=== PATIENT | female | born 1985 | race African-American/Black ===

== ENCOUNTER 2017-05-02 11:11 | Inpatient (IN) ==
[2017-05-02] MEDS ORDERED: KETOROLAC 60 MG/2 ML VIAL IM STA (12:19)
[2017-05-02 12:29] LABS: Apearance,Urine CLOUDY (Clear); Bacteria,Urine Many /HPF (Few); Bilirubin,Urine Negative (Negative); Blood, Urine Negative (Negative); Glucose,Urine (UA) Negative (Negative); Ketones,Urine 20 mg/dL (Negative); Mucus,Urine Moderate /LPF (Occasional); Nitrite,Urine Negative (Negative); Protein,Urine 30 MG/DL; RBC,Urine 2 /HPF (0-4); Squamous Epithelial Cell,Urine Moderate /HPF (0-10); Urine Color Amber (Yellow); Urine Specific Gravity 1.024 (1.001-1.035); WBC,Urine 2 /HPF (0-6)
[2017-05-02 12:40] LABS: Basophils % 0.3 % (0.0-0.8); Eosinophils # 0.2 10*3/uL (0.0-0.87); Eosinophils % 2.3 % (0.00-10.9); Hemoglobin 15.9 GM/DL (12.0-16.0); Immature Granulocytes % 0.4 %; Immature Granulocytes Absolute 0.03 #; Lymphocytes # 0.8 10*3/uL (1.4-4.0); Lymphocytes % 11.3 % (21.3-54.2); Mean Corpuscular HGB Conc 36.1 GM/DL (32-36); Mean Corpuscular Hemoglobin 31 PG (27-34); Mean Corpuscular Volume 85.1 FL (87-102); Mean Platelet Volume 9.3 FL (9.6-12.0); Monocytes # 0.5 10*3/uL (0.11-0.8); Neutrophils # 5.7 10*3/uL (1.4-7.4); Neutrophils % 78.7 % (38.7-73.9); Platelet Count 147 T/CUMM (130-400); Red Blood Count 5.17 MC/CUMM (3.8-5.5); White Blood Count 7.3 T/CUMM (4-12)
--- NOTE | 2017-05-02 12:56 | Emergency Department Note ---
Arrival - Arrival Chief Complaint: Non-Specific Stated Complaint: fever,lower back pain,upper stomach pain ED Nursing Triage Note: reports low back pain and some stomach pain with h/a for three days. denies uti s/s. denies n/v/d. reports has been in bed for three days. Mode of Arrival: Ambulatory Limitations: No Limitations Source: Patient, Old Records Reviewed, RN Notes Reviewed Time Seen by Provider: 05/02/17 11:50 - History of Present Illness HPI Narrative: - History of Present Illness 32-year-old black presents to ED with CC of: abdominal pain, low back pain, and headache x 3 days Fever: yes, temp max 101.0, temp 100.4 in triage Keeping fluids down: yes Normal urine output: yes Patient has a history of kidney stones, she feels like this may be another kidney stone PMHx: HTN, DM, CAD, history of hepatitis A, history of renal calculi, except he kidney disease, dialysis, and other comorbidites as listed in chart Date of Last Menstrual Period: hyst Allergies/Adverse Reactions: Allergies Allergy/AdvReac Type Severity Reaction Status Date / Time Sulfa (Sulfonamide AdvReac ANAPHYLAXIS Verified 01/30/17 18:28 Antibiotics) sulfamethoxazole AdvReac ANAPHYLAXIS Verified 01/30/17 18:28 [From Bactrim] trimethoprim [From Bactrim] AdvReac ANAPHYLAXIS Verified 01/30/17 18:28 Home Medications: Home Medications Medication Instructions Recorded Confirmed Type Divalproex [Depakote] 250 mg PO DAILY 03/17/17 05/02/17 History Naproxen [Naprosyn Tab] 500 mg PO Q12H PRN #15 tablet 03/17/17 05/02/17 Rx Topiramate [Topiramate] 100 mg PO DAILY 03/17/17 05/02/17 History Linaclotide [Linzess] 290 mg PO DAILY 05/02/17 05/02/17 History Ondansetron Tab [Zofran Tab] 8 mg PO TID PRN 05/02/17 05/02/17 History Tramadol HCl [Tramadol Tab] 50 mg PO BEDTIME PRN 05/02/17 05/02/17 History Hydrocodone/Acetaminophen 1 tablet PO BID PRN 05/03/17 05/03/17 History [Hydrocodon-Acetaminophen 5-325] Review of System - Review of System 12 point system: reviewed and no additional remarkable complaints except as stated - Review of System Gastrointestinal: Present: abdominal pain Musculoskeletal: Present: back pain Neurological: Present: headache Medical,Surgical,& Family Hx - Medical History Neurology: History of: Seizures Gastrointestinal: History of: Liver Problems - Surgical History Abdominal Surgeries: Surgical HX of: Cholecystectomy Reproductive Surgeries: Surgical HX of;: Hysterectomy - Social History Smoking Status: Never smoker Exam Physical Examination: - General General appearance: alert, in no apparent distress - HEENT Present: atraumatic, normocephalic, normal inspection, PERRL, EOMI, mucous membranes moist - Neck Neck exam: Present: normal inspection, full ROM - Respiratory Respiratory exam: Present: normal lung sounds bilaterally - Cardiovascular Cardiovascular exam: Present: regular rate, normal rhythm, normal heart sounds - Abdominal Exam Abdominal exam: Present: soft, tenderness: epigastric area, mild to moderate, normal bowel sounds. Absent: distention, guarding, trauma, - Extremities Exam Extremities exam: Present: normal inspection, full ROM. Absent: pedal edema, joint swelling, calf tenderness - Back Exam Back exam: Present: normal inspection, tenderness to palpation across lower back , denies CVA tenderness - Neurological Exam Neurological exam: Present: alert, oriented X3, no neuorosensory deficits - Psychiatric Psychiatric exam: Present: normal affect, normal mood - Skin Skin exam: Present: warm, dry, intact Vital Signs: Vital Signs Temperature 97.3 F L 05/04/17 20:00 Pulse Rate 80 05/04/17 20:00 Respiratory Rate 22 05/04/17 20:00 Blood Pressure 114/72 05/04/17 20:00 O2 Sat by Pulse Oximetry 96 05/04/17 20:00 Course - Consultations Time: 13:45 (Hospitalist service notified of pt presence and status.) Time: 14:15 (Hospitalist service here to assess patient. Will admit.) Results - Labs CBC & BMP: 05/03/17 06:20 05/03/17 06:20 Lab Results: I have reviewed the patients labs Labs: Laboratory Tests 05/02/17 12:17 Urine Color [place] Urine Appearance Cloudy Urine pH 5.0 Ur Specific [place] 1.024 Urine Protein 30 Urine Glucose (UA) Negative Urine Ketones 20 Urine Blood Negative Urine Nitrate Negative Urine Bilirubin Negative Urine Urobilinogen 4.0 H Urine Leukocytes Negative Urine RBC 2 Urine WBC 2 Ur Squamous Epith Cells Moderate Urine Bacteria Many Urine Mucus Moderate Ur Culture Indicated? Not indicated Urine Test Negative - Impressions CT abdomen/pelvis:No acute intra-abdominal or pelvic pathology. At most, minimal constipation. Status post cholecystectomy, hysterectomy, and appendectomy. Nonobstructing right kidney stone and left renal cortical calcification, both stable since 2014. - Diagnostic Findings Procedure: CT Abdomen and Pelvis: report reviewed by me (See Impressions above) Disposition Clinical Impression: Hepatitis Disposition: Still a Patient Condition: Stable Time of Disposition: 14:15
--- NOTE | 2017-05-02 13:06 | CT Report ---
CT abdomen pelvis wo con Indication: Abdominal and pelvic pain. CT ABDOMEN AND PELVIS WITHOUT CONTRAST DLP: 430 mGy*cm. One or more of the following dose reduction techniques was used: Automated exposure control, adjustment of the mA and/or kV according the patient size, or use of iterative reconstruction techniques. Comparison: 08/26/2015. Technique: Axial noncontrast CT images of the abdomen and pelvis were obtained. Abdomen: 1 mm stone mid right kidney is stable. A 5 mm cortical calcification associated with the left kidney is stable as well. No obstructive pathology of either urinary collecting system. Cholecystectomy clips. Unenhanced liver, spleen, pancreas and adrenal glands are within normal limits. Normal heart size. Bibasilar atelectasis or scarring. No bowel obstruction. Increased stool is present throughout colon. It is not dilated. No free fluid, free air or lymphadenopathy. Pelvis: Surgical clips the tip of the cecum and failure to identify the appendix suggest appendectomy. Uterus is absent as well. Urinary bladder is contracted. Rectosigmoid colon is unremarkable. No bone lesions. Impression: No acute intra-abdominal or pelvic pathology. At most, minimal constipation. Status post cholecystectomy, hysterectomy, and appendectomy. Nonobstructing right kidney stone and left renal cortical calcification, both stable since 2014. PROCEDURE INTERPRETED AT [facility] DEPARTMENT OF RADIOLOGY Final Report Signed by: Bj Titus M.D.
[2017-05-02 13:24] LABS: Albumin 3.6 G/DL (3.4-5.0); Bilirubin,Total 2.2 MG/DL (0.2-1.0); Calcium 9.5 MG/DL (8.5-10.1); Osmolality,Calculated 271.8 MOS/KG (273-304); Total Protein 6.7 G/DL (6.4-8.3)
[2017-05-02] MEDS ORDERED: ONDANSETRON 4 MG/2 ML VIAL IV PRN (14:02)
[2017-05-02] MEDS ORDERED: KETOROLAC 60 MG/2 ML VIAL IM ONE (14:08)
--- NOTE | 2017-05-02 15:07 | Hospitalist History & Physical ---
History of Present Illness Chief complaint: abdominal pain/fever History of present illness: This is a very pleasant 32-year-old female that presented Non-Urgent[facility] at [facility] for further evaluation of abdominal pain and fever. Patient has a medical history significant for seizure disorder , and hepatitis A. Patient has a surgical history significant for hysterectomy and cholecystectomy. Patient reports the onset of symptoms 3 days prior to presentation. Pertinent positives include: Abdominal pain, fever, low back pain , headache: Pertinent negatives include: nausea, vomiting, diarrhea. At the time of history of presentation the patient was noted to be febrile temperature noted at 100.4. Labs were obtained CBC reported white blood cell count and 0.7 , hemoglobin 15.9, hematocrit 44, platelet count 1.7 Home Medications Medication Instructions Recorded Confirmed Type Divalproex [Depakote] 250 mg PO DAILY 03/17/17 03/17/17 History Naproxen [Naprosyn Tab] 500 mg PO Q12H PRN #15 tablet 03/17/17 Rx Topiramate [Topiramate] 100 mg PO DAILY 03/17/17 03/17/17 History Allergies Allergy/AdvReac Type Severity Reaction Status Date / Time Sulfa (Sulfonamide AdvReac ANAPHYLAXIS Verified 01/30/17 18:28 Antibiotics) sulfamethoxazole AdvReac ANAPHYLAXIS Verified 01/30/17 18:28 [From Bactrim] trimethoprim [From Bactrim] AdvReac ANAPHYLAXIS Verified 01/30/17 18:28 Medical,Surgical,& Family Hx - Medical History Neurology: History of: Seizures Gastrointestinal: History of: Liver Problems - Surgical History Abdominal Surgeries: Surgical HX of: Cholecystectomy Reproductive Surgeries: Surgical HX of;: Hysterectomy - Social History Smoking Status: Never smoker Exam - Constitutional Vitals: Period Temp Pulse Resp BP Sys/Phillips Pulse Ox Last 24 Hr 100.4 F 87-115 18-20 111-126/79-80 99 Results - Labs CBC & BMP: 05/02/17 12:17 05/02/17 12:17
[2017-05-02] MEDS: ENOXAPARIN 40 MG/0.4 ML SYRINGE SUBCUT SCH (15:19)
[2017-05-02] MEDS: SODIUM CHLORIDE 0.9% 1,000 ML IV SCH ×2 (15:19→23:30)
--- NOTE | 2017-05-02 15:22 | Ultrasound Report ---
US abdomen Indication: Abdominal pain. ULTRASOUND ABDOMEN, COMPLETE Comparison: None Findings: Liver: Normal size and smooth contour. No solid lesion. Gallbladder: Surgically absent Common bile duct: 5 mm Aorta: Normal-sized IVC: Patent Spleen: Unremarkable Pancreas: Unremarkable Right kidney: 9.2 cm length. No mass, cyst, calcification or obstruction Left kidney: 10.6 cm length. 4 x 7 x 7 mm parenchymal calcification involves the upper pole left kidney, and there is a smaller 7 x 13 x 12 mm anechoic cyst adjacent to it. No solid mass or hydronephrosis. Impression: 1. Status post cholecystectomy. 2. Left renal parenchymal cyst with adjacent calcification, both chronic. PROCEDURE INTERPRETED AT [facility] DEPARTMENT OF RADIOLOGY Final Report Signed by: Bj Titus M.D.
--- NOTE | 2017-05-02 16:25 | Hospitalist History & Physical ---
Assessment and Plan (1) Hepatitis Status: Acute Assessment and plan: Impression: 1. Probable viral hepatitis. Must also consider autoimmune or medication induced. 2. Seizure disorder 3. Irritable bowel with constipation, possibly related to opioids Plan: Ultrasound of the liver fails to reveal any space-occupying lesion. She does not appear to have steatosis or cholestasis based on liver enzyme pattern or ultrasound. She is not on any new medications. We will get hepatitis serology , and I will also check an KATJA. This note was completed using [employer] voice recognition software. There may be accounting manager assistant controller errors as a result. Current Visit: Yes History of Present Illness Chief complaint: Abdominal pain History of present illness: Ms. Melendez is a 32 year old female She reports a history of hepatitis A about 15 years ago. About 2 years ago, she began having difficulty with some ill-defined arthritis, primarily in the large joints. She has been managed with opioids. The etiology of the arthritis has never been determined. She does not have a significant family history of arthritis or any connective tissue disease, as far she knows. She then began having difficulty with abdominal pain and constipation. She ended up having a cholecystectomy, and her abdominal pain persists. She has not had any GI bleeding. She has had some rare diarrhea, but mostly constipation. She takes Linzess every day, and some other medications for irritable bowel once or twice a week in order to help her have a bowel movement. She reports that she has been to the emergency room several times for evaluation of kidney stones, and has always been told that her "liver enzymes are high." She has not had any other liver testing recently. She came to the emergency room for evaluation of some abdominal pain, and was found to have markedly elevated transaminases. She is being admitted for evaluation of this. She has not had any dark urine. She does not consume alcohol. She denies any use of illicit drugs, and there is no family history of any liver disease Home Medications Medication Instructions Recorded Confirmed Type Divalproex [Depakote] 250 mg PO DAILY 03/17/17 05/02/17 History Naproxen [Naprosyn Tab] 500 mg PO Q12H PRN #15 tablet 03/17/17 05/02/17 Rx Topiramate [Topiramate] 100 mg PO DAILY 03/17/17 05/02/17 History Linaclotide [Linzess] 1 tablet PO DAILY 05/02/17 05/02/17 History Ondansetron Tab [Zofran Tab] 2 tablet PO TID PRN 05/02/17 05/02/17 History Tramadol HCl [Tramadol Tab] 50 mg PO BEDTIME PRN 05/02/17 05/02/17 History Allergies Allergy/AdvReac Type Severity Reaction Status Date / Time Sulfa (Sulfonamide AdvReac ANAPHYLAXIS Verified 01/30/17 18:28 Antibiotics) sulfamethoxazole AdvReac ANAPHYLAXIS Verified 01/30/17 18:28 [From Bactrim] trimethoprim [From Bactrim] AdvReac ANAPHYLAXIS Verified 01/30/17 18:28 Medical,Surgical,& Family Hx - Medical History Neurology: History of: Seizures (LAST IN NOV) Gastrointestinal: History of: Liver Problems, GI Problems (IBS) - Surgical History Abdominal Surgeries: Surgical HX of: Cholecystectomy Reproductive Surgeries: Surgical HX of;: Hysterectomy - Social History Smoking Status: Never smoker Frequency of Alcohol Use: None Type of Drug Use: None ROS unobtainable: due to endotracheal tube Review of systems: Gen.: No weight loss or gain over the past year. Eyes: No glaucoma or cataracts. No change in visual acuity. Ears nose and throat: No change in auditory acuity, sinus problems, nasal allergies, or sore throat. Lungs: No asthma, bronchitis, or pneumonia. Cardiac: No chest pain, myocardial infarction, heart failure, stroke, murmur, or rheumatic fever. GI: See history of present on. : No hematuria or UTI. She has had kidney stones in the past. Neurologic: She has known seizures following what sounds like some head trauma several years ago. Endocrine: No thyroid disease. Hematologic: No anemia or blood dyscrasias. Skin: No rashes or lesions. Musculoskeletal: Arthritis as described in the HPI. Exam - Constitutional Vitals: Period Temp Pulse Resp BP Sys/Phillips Pulse Ox Last 24 Hr 99.7 F-100.4 F 87-115 18-20 111-126/76-80 92-99 Vital signs are noted above. General: She is a pleasant black lady in no distress. HEENT: Pupils are round and reactive. Extraocular muscles are normal. Gaze is conjugate. Fundi were not examined. There is no nasal discharge. Mucous membranes are moist. Neck: Supple, without mass, bruit, or venous distention. Cardiac: Rhythm is regular. The carotids are normal. I don't hear murmur gallop or rub. Peripheral pulses are intact. Lungs: Clear without rales, wheezes, or rubs. Abdomen: Soft and nontender. Bowel sounds are present. No mass palpable. Rectal: Not done. Extremities: No cyanosis, clubbing, or edema. Skin: No significant rash or lesion. Neurologic: She is awake and alert. She moves all 4 extremities. Cranial nerves appear to be intact. No pathologic reflexes are elicited. Results - Labs CBC & BMP: 05/02/17 12:17 05/02/17 12:17 Lab Results: I have reviewed the past 24 hour labs
[2017-05-02] MEDS ORDERED: ONDANSETRON 4 MG TABLET PO PRN (16:32)
[2017-05-02] MEDS ORDERED: traMADol 50 MG TABLET PO PRN (16:32)
[2017-05-02 16:50] LABS: Barbiturates Screen,Urine Negative (Negative); Benzodiazepines Screen,Urine Positive (Negative); Cannabinoid Screen,Urine Negative (Negative); Opiate Screen,Urine Positive (Negative); Phencyclidine Screen,Urine Negative (Negative)
[2017-05-02 17:41] LABS: Hepatitis A Ab IgM Quant 0.05 Index; Hepatitis A Ab IgM Result Negative (Negative); Hepatitis B Core IgM Quant 0.09 Index; Hepatitis B Core IgM Result Negative (Negative); Hepatitis B Surface Ag Quant < 0.10 Index; Hepatitis B Surface Ag Result Negative (Negative); Hepatitis C Virus Ab Quant 0.03 Index; Hepatitis C Virus Ab Result Negative (Negative)
[2017-05-03] MEDS: MORPHINE 2 MG/1 ML SYRINGE IV PRN ×5 (04:16→23:43)
[2017-05-03 06:50] LABS: Basophils % 0.4 % (0.0-0.8); Eosinophils # 0.4 10*3/uL (0.0-0.87); Eosinophils % 8.5 % (0.00-10.9); Hematocrit 35.3 VOL% (35.7-47.0); Immature Granulocytes % 0.6 %; Immature Granulocytes Absolute 0.03 #; Lymphocytes # 1.4 10*3/uL (1.4-4.0); Mean Corpuscular Hemoglobin 31 PG (27-34); Mean Corpuscular Volume 85.3 FL (87-102); Mean Platelet Volume 9.7 FL (9.6-12.0); Monocytes # 0.4 10*3/uL (0.11-0.8); Monocytes % 8.7 % (1.7-12.7); Neutrophils # 2.6 10*3/uL (1.4-7.4); Neutrophils % 53.8 % (38.7-73.9); Platelet Count 136 T/CUMM (130-400); Red Blood Count 4.14 MC/CUMM (3.8-5.5); Red Cell Distribution Width 13.1 % (9.3-17.3)
[2017-05-03 06:58] LABS: Hemoglobin 12.7 GM/DL (12.0-16.0); White Blood Count 4.8 T/CUMM (4-12)
[2017-05-03 07:30] LABS: Albumin 2.9 G/DL (3.4-5.0); Bilirubin,Total 1.7 MG/DL (0.2-1.0); Calcium 8.3 MG/DL (8.5-10.1); Magnesium 1.9 MG/DL (1.8-2.4); Osmolality,Calculated 286.8 MOS/KG (273-304); Potassium 3.7 MMOL/L (3.5-5.1); Total Protein 5.4 G/DL (6.4-8.3)
[2017-05-03] MEDS: SODIUM CHLORIDE 0.9% 1,000 ML IV SCH ×2 (07:44→17:11)
--- NOTE | 2017-05-03 08:17 | Hospitalist Progress Note ---
Assessment and Plan (1) Hepatitis Status: Acute Assessment and plan: Impression: 1. Elevated liver enzymes; etiology not known. 2. Seizure disorder 3. Irritable bowel with constipation, possibly related to opioids Plan: Await KATJA. If it is negative, would consider GI evaluation and liver biopsy. Her liver tests are trending down, so we might be able to follow expectantly. This note was completed using [employer] voice recognition software. There may be clinical laboratory medical director errors as a result. Current Visit: Yes Hospitalist: Subjective Interval history: Follow-up elevated liver enzymes. The patient continues to complain of some back and abdominal pain. Hepatitis serology is all negative. KATJA is pending. Formal liver ultrasound report is negative for any space-occupying lesion or steatosis. She reports no recent history of acetaminophen overuse. We again reviewed her medications, and she again reports nothing new. Exam - Constitutional Vitals: Period Temp Pulse Resp BP Sys/Phillips Pulse Ox Last 24 Hr 97.5 F-100.4 F 73-115 16-22 107-126/66-88 92-99 Vital signs are noted above. Heart is regular with no murmur or gallop. Lungs are clear with no rales or wheezes. Abdomen is soft with minimal right sided tenderness. She is awake and alert Results - Labs CBC & BMP: 05/03/17 06:20 05/03/17 06:20 Lab Results: I have reviewed the past 24 hour labs (Transaminases are trending down)
[2017-05-03] MEDS: TOPIRAMATE 100 MG TABLET PO SCH (08:30)
[2017-05-03] MEDS: DIVALPROEX 250 MG TABLET PO SCH (08:31)
[2017-05-03] MEDS: LINACLOTIDE 145 MCG CAPSULE PO SCH (08:34)
[2017-05-03] MEDS ORDERED: VALPROIC ACID IV SCH (09:00)
[2017-05-03] MEDS ORDERED: SODIUM CHLORIDE 0.9% IV SCH (09:00)
[2017-05-03 12:32] LABS: HIV Antigen/Antibody Result Nonreactive (Nonreactive)
[2017-05-03] MEDS: ENOXAPARIN 40 MG/0.4 ML SYRINGE SUBCUT SCH (15:20)
[2017-05-04] MEDS: SODIUM CHLORIDE 0.9% 1,000 ML IV SCH ×3 (01:30→17:50)
--- NOTE | 2017-05-04 08:30 | Hospitalist Progress Note ---
Assessment and Plan (1) Hepatitis Status: Acute Assessment and plan: Impression: 1. Elevated liver enzymes; etiology not known. Hepatitis serology and KATJA are negative 2. Seizure disorder 3. Irritable bowel with constipation, possibly related to opioids Plan: Check INR and CMV titer. Recheck liver enzymes in the morning. This note was completed using [employer] voice recognition software. There may be lettuce cutter errors as a result. Current Visit: Yes Hospitalist: Subjective Interval history: Follow-up elevated liver enzymes. The patient continues to complain of some pain. She denies any pruritus. She wondered if the kidney stone that was discovered on ultrasound might be related to her pain. She reports that it is mainly in the back. Bowels moved yesterday. Urine output is good. Exam - Constitutional Vitals: Period Temp Pulse Resp BP Sys/Phillips Pulse Ox Last 24 Hr 97.8 F-98.9 F 72-96 18-20 111-133/70-88 95-100 Vital signs are noted above. Heart is regular with no murmur or gallop. Lungs are clear with no rales or wheezes. Abdomen is soft without any mass or tenderness. Liver is not palpable. She is awake and alert Results - Labs CBC & BMP: 05/03/17 06:20 05/03/17 06:20
[2017-05-04] MEDS: LINACLOTIDE 145 MCG CAPSULE PO SCH (08:42)
[2017-05-04] MEDS: ENOXAPARIN 40 MG/0.4 ML SYRINGE SUBCUT SCH (08:43)
[2017-05-04] MEDS: DIVALPROEX 250 MG TABLET PO SCH (08:43)
[2017-05-04] MEDS: TOPIRAMATE 100 MG TABLET PO SCH (08:43)
[2017-05-04] MEDS: MORPHINE 2 MG/1 ML SYRINGE IV PRN ×3 (08:45→23:10)
[2017-05-04 09:18] LABS: PT Patient Result 10.6 SECS
[2017-05-05] MEDS: SODIUM CHLORIDE 0.9% 1,000 ML IV SCH ×2 (01:25→09:47)
[2017-05-05 03:23] LABS: Albumin 2.9 G/DL (3.4-5.0); Bilirubin,Direct 0.3 MG/DL (0.0-0.20); Bilirubin,Indirect 0.6 MG/DL (0.0-1.0); Bilirubin,Total 0.9 MG/DL (0.2-1.0); Total Protein 5.6 G/DL (6.4-8.3)
[2017-05-05] MEDS: MORPHINE 2 MG/1 ML SYRINGE IV PRN (06:04)
--- NOTE | 2017-05-05 08:19 | Discharge Summary ---
Hospital Course - Hospital Course Hospital Course: Discharge diagnosis: Probable viral hepatitis, not A, B, or C Chronic back pain/arthritis Kidney stones The patient presented to the hospital for evaluation of some pain and weakness. She was found to have impressively elevated liver tests. She was admitted for evaluation. Ultrasound did not show any structural abnormalities. She had hepatitis serology that was all negative. KATJA was negative. INR was normal. Liver tests improved without any specific therapy. She continued to complain of pain. She is under a contract with pain management over at [facility]. She said that the hydrocodone was not working well for her, and requested a change. I told her that we could give her a few days worth of oral opioids, but she would need to check with her pain management physicians to be sure that they knew what she was taking, and they would need to manage her opioids on a joint terminal attack controller basis. Medication reconciliation has been performed. Regular diet. Activity as tolerated. Follow-up with pain management and nephrology for the kidney stones. This note was completed using [employer] voice recognition software. There may be developer automatic errors as a result. Diagnosis - Discharge Diagnosis (1) Hepatitis Status: Acute Discharge Plan - Discharge Data Disposition: Disch To Home/Self Care Condition at Discharge: Stable Discharge Diet: advance to your usual diet Activity: resume usual activities as tolerated Hygiene: no restrictions Weight Bearing at Discharge: full weight bearing Driving: no restrictions - Discharge Medications New Oxycodone HCl/Acetaminophen [Oxycodone-Acetaminophen 5-325] 1 each PO Q6-8H # 15 tablet Continue Topiramate 100 mg PO DAILY Ondansetron Tab [Zofran Tab] 8 mg PO TID PRN PRN Reason: Nausea Tramadol HCl [Tramadol Tab] 50 mg PO BEDTIME PRN PRN Reason: Pain Mild (1-3) Divalproex [Depakote] 250 mg PO DAILY Naproxen [Naprosyn Tab] 500 mg PO Q12H PRN #15 tablet PRN Reason: knee pain Linaclotide [Linzess] 290 mg PO DAILY Discontinued Hydrocodone/Acetaminophen [Hydrocodon-Acetaminophen 5-325] 1 tablet PO BID PRN PRN Reason: pain - Follow Up or Referral - Forms/Instructions Exam - Constitutional Vitals: Period Temp Pulse Resp BP Sys/Pihllips Pulse Ox Last 24 Hr 97.0 F-98.9 F 74-83 18-22 114-129/72-84 96-100 Vital signs are noted above. Heart is regular with no murmur. Chest is clear. Abdomen is soft with no mass. She is awake and alert Discharge Results Procedures and tests throughout hospitalization: Pending Orders 05/02/17 16:57 Blood Culture Stat 05/04/17 08:56 Cytomegalovirus CMV, IgG,IgM,S Routine Labs on day of discharge: Labs from last 24 hours 05/05/17 05/04/17 02:37 08:56 INR 1.0 PT Patient/Control Mix 10.6 Total Bilirubin 0.90 Direct Bilirubin 0.30 H Indirect Bilirubin 0.6 AST 188 H ALT 1953 H Alkaline Phosphatase 227 H Total Protein 5.6 L Albumin 2.9 L Preliminary micro results at discharge 05/02/17 16:57 Blood Culture - Preliminary Blood No growth at 1 day 05/02/17 17:01 Blood Culture - Preliminary Blood No growth at 1 day DS: Provider Date of admission: 05/02/17 13:59 Primary care physician: Demario Chavez MD Attending physician on admission: John Ralph MD Discharging clinician: John Ralph MD Expected date of discharge: 05/05/17
[2017-05-05] MEDS: LINACLOTIDE 145 MCG CAPSULE PO SCH (08:37)
[2017-05-05] MEDS: DIVALPROEX 250 MG TABLET PO SCH (08:38)
[2017-05-05] MEDS: TOPIRAMATE 100 MG TABLET PO SCH (08:38)
[2017-05-05] MEDS: ENOXAPARIN 40 MG/0.4 ML SYRINGE SUBCUT SCH (08:38)
[2017-05-05 09:45] VITALS: BP 138/84
== END 2017-05-05 09:47 | disposition home or self-care (01) ==
LOC: N.ED 11:11 → N.EDINP 13:59 → N.2E 15:07
PROVIDERS: ADMIT Internal Medicine Geriatric Medicine; ATTEND Internal Medicine Geriatric Medicine